=== PATIENT | male | born 1980 | race Two or more races ===

== ENCOUNTER 2022-08-02 07:20 | Emergency (ER) | payer MEDICAID ==
[~2022-08-02] VITALS: Ht 170.2 cm; Wt 91.4 kg
[2022-08-02] MEDS ORDERED: TETRACAINE HCL 0.5% OPTH(EYE) SOLN 4ML EACHEYE ONE (09:15)
[2022-08-02 09:16] VITALS: BP 121/82
[2022-08-02] MEDS ORDERED: CIP03OS RIGHTEYE (09:23)
[2022-08-02] MEDS ORDERED: FLUORESCEIN SOD OPTH TEST STRIP OP ONE (09:30)
== END 2022-08-02 09:34 | disposition home or self-care (01) ==
LOC: ER 07:20
DX: T15.01XA Foreign body in cornea, right eye, initial encounter (principal); W22.8XXA Striking against or struck by other objects, initial encounter; Y93.89 Activity, other specified; Y92.89 Other specified places as the place of occurrence of the external cause; Y99.8 Other external cause status

== ENCOUNTER → 2023-08-24 | Outpatient (CLI) | payer MEDICAID ==
[~2023-08-24] MED LIST: CIP03OS RIGHTEYE
[2023-08-24 06:36] LABS: Urine Bacteria NONE SEEN /hpf (None Seen); Urine Blood Negative /uL (Negative); Urine Clarity Clear (Clear); Urine Color Yellow (Yellow); Urine Mucus FEW (None Seen); Urine Protein, UAD TRACE (Negative); Urine Specific Gravity 1.032 (1.001-1.035); Urine Urobilinogen Normal (Negative); Urine WBC 1 /hpf (0 - 3); Urine pH 5.5 (5.0-8.0)
[2023-08-24 06:48] LABS: Basophils # (auto) 0.1 10 ^3/uL (0-0.2); Basophils % (auto) 0.7 % (0.0-2.0); Eosinophils # (auto) 0.1 10 ^3/uL (0-0.8); Eosinophils % (auto) 0.8 % (0.0-7.0); Hematocrit 45.6 % (41.0-53.0); Hemoglobin 15.6 g/dL (13.5-17.5); Lymphocytes # (auto) 2.8 10 ^3/uL (0.4-5.4); Lymphocytes % (auto) 31.5 % (10.0-50.0); Mean Corpuscular Hgb Conc. 34.2 g/dL (32.0-36.0); Mean Corpuscular Volume 96.3 fL (80.0-100.0); Monocytes # (auto) 0.8 10 ^3/uL (0-1.3); Neutrophils # (auto) 5.2 10 ^3/uL (1.6-8.6); Nucleated Red Blood Cells % 0.1 %; Red Blood Cells 4.73 10^6/uL (4.5-5.90); Red Cell Distribution Width 13.3 % (11.8-14.3)
[2023-08-24 07:39] LABS: Amphetamine Screen, Urine Neg (NEGATIVE); Barbiturate Scree,Urine Neg (NEGATIVE)
[2023-08-24 07:40] LABS: Benzodiazephine Screen, Urine Neg (NEGATIVE); Cocaine Screen, Urine Neg (NEGATIVE)
[2023-08-24 07:41] LABS: Cannabinoid Screen, Urine Neg (NEGATIVE); Opiate Scree,Urine Neg (NEGATIVE); Phencyclidine Screen, Urine Neg (NEGATIVE)
[2023-08-24 07:44] LABS: Alanine Aminotransferase 47 U/L (7-40); Albumin 4.4 g/dL (3.2-4.8); Alkaline Phosphatase 67 U/L (46-116); Anion Gap 6 (5-15); Aspartate Aminotransferase 22 U/L (13-40); BUN/Creatinine Ratio 10.4 (10.0-20.0); Blood Urea Nitrogen 10 mg/dL (9-23); Calcium 9.5 mg/dL (8.5-10.1); Carbon Dioxide 26 mmol/L (20-30); Chloride 109 mmol/L (98-107); Cholesterol 149 mg/dL (< 200); Glucose 102 mg/dL (74-106); HDL Cholesterol 48 mg/dL (40-59); LDL Cholesterol 94 mg/dL (< 100); Potassium 3.6 mmol/L (3.5-5.1); Sodium 141 mmol/L (136-145); Triglycerides 86 mg/dL (< 150)
[2023-08-24 07:45] LABS: Bilirubin, Total 1.3 mg/dL (0.2-1.0); Total Protein 6.6 g/dL (5.7-8.2)
[2023-08-24 07:54] LABS: Uric Acid 6.2 mg/dL (3.7-9.2)
[2023-08-24 09:54] LABS: Hepatitis B Core Total AB Negative (Negative)
[2023-08-24 12:34] LABS: Hepatitis A Total Antibody Positive (Negative); Hepatitis B Surface Antibody Negative (Negative); Hepatitis B Surface Antigen Negative (Negative); Hepatitis C Antibody Negative (Negative)
[2023-08-25 07:06] LABS: Rheumatoid Arthritis Factor <10.0 IU/mL (<14.0)
[2023-08-26 00:07] LABS: CCP IgG/IgA Antibody 5 units (0-19)
== END | disposition home or self-care (01) ==
LOC: LAB 06:04
PROVIDERS: ATTEND Internal Medicine
DX: J02.9 Acute pharyngitis, unspecified (principal)
CPT/HCPCS: 36415; 80053; 80061; 80307; 81001; 82274; 82306; 83036; 84443; 84550; 85025; 86200; 86431; 86704; 86706; 86708; 86803; 87340

== ENCOUNTER → 2024-10-18 | Outpatient (CLI) | payer MEDICAID ==
[2024-10-18 10:06] LABS: Urine Bacteria None Seen /hpf (None Seen)
[2024-10-18 10:33] LABS: Urine Blood Negative /uL (Negative); Urine Clarity Clear (Clear); Urine Color Light-Yellow (Yellow); Urine Protein, UAD Negative (Negative); Urine Specific Gravity 1.027 (1.001-1.035); Urine Squamous Epithelial Cell None Seen /hpf (<5); Urine Urobilinogen Normal (Negative); Urine WBC 1 /HPF (0-3)
[2024-10-18 10:35] LABS: Alanine Aminotransferase 38 U/L (7-40); Alkaline Phosphatase 70 U/L (46-116); Anion Gap 9 (5-15); BUN/Creatinine Ratio 12.4 (10.0-20.0); Basophils # (auto) 0 10 ^3/uL (0-0.2); Basophils % (auto) 0.4 % (0.0-2.0); Blood Urea Nitrogen 13 mg/dL (9-23); Calcium 9.9 mg/dL (8.7-10.4); Carbon Dioxide 26 mmol/L (20-31); Chloride 106 mmol/L (98-107); Eosinophils # (auto) 0.1 10 ^3/uL (0-0.8); Eosinophils % (auto) 1.2 % (0.0-7.0); Glucose 106 mg/dL (74-106); Hematocrit 45.6 % (41.0-53.0); Hemoglobin 15.5 g/dL (13.5-17.5); LDL Cholesterol 103 mg/dL (< 100); Lymphocytes # (auto) 2.2 10 ^3/uL (0.4-5.4); Lymphocytes % (auto) 30.8 % (10.0-50.0); Mean Corpuscular Hemoglobin 32.6 pg (28.0-32.0); Mean Corpuscular Hgb Conc. 34.1 g/dL (32.0-36.0); Mean Corpuscular Volume 95.8 fL (80.0-100.0); Monocytes # (auto) 0.6 10 ^3/uL (0-1.3); Monocytes % (auto) 9.2 % (0.0-12.0); Neutrophils # (auto) 4.1 10 ^3/uL (1.6-8.6); Neutrophils % (auto) 58.4 % (37.0-80.0); Nucleated Red Blood Cells % 0.1 %; Platelet Count (auto) 254 10^3/uL (140-450); Potassium 4.7 mmol/L (3.5-5.1); Red Blood Cells 4.76 10^6/uL (4.5-5.90); Red Cell Distribution Width 13.3 % (11.8-14.3); Sodium 141 mmol/L (136-145); Triglycerides 63 mg/dL (< 150)
[2024-10-18 10:36] LABS: Albumin 4.8 g/dL (3.2-4.8); Aspartate Aminotransferase 23 U/L (13-40); Cholesterol 159 mg/dL (< 200); HDL Cholesterol 46 mg/dL (40-59)
[2024-10-18 10:37] LABS: Bilirubin, Total 1.1 mg/dL (0.2-1.0)
== END | disposition home or self-care (01) ==
LOC: LAB 09:43
PROVIDERS: ATTEND Internal Medicine
DX: I10 Essential (primary) hypertension (principal); E55.9 Vitamin D deficiency, unspecified; R06.02 Shortness of breath; Z00.00 Encounter for general adult medical examination without abnormal findings
CPT/HCPCS: 36415; 80053; 80061; 81001; 82306; 83036; 83880; 84443; 85025

== ENCOUNTER 2025-03-16 07:33 | Outpatient (CLI) | payer MEDICAID ==
[~2025-03-16] VITALS: Ht 170.2 cm; Wt 89.8 kg
--- NOTE | 2025-03-16 15:52 | DVHSR ---
APPROVED REPORT Exam: Nuclear Stress Test BMI: 0 Stress Test Details HR Max Heart Rate (APMHR): 175.144609 bpm Target HR (85% APMHR): 148.851362 bpm BP ECG Stress ECG Conclusion lvef 55% fixed inferior wall defct noted no ischemia NM EXAM: Myocardial Perfusion REST/STRESS Imaging Protocol: Rest Tc-99m/Stress Tc-99m 1 day Resting Data Rest SPECT myocardial perfusion imaging was performed in supine position 60 minutes following the int ravenous injection of 11.0 mCi of Tc-99m Tetrofosmin. Time of rest injection: 08:29 Date: 03/16/2025 Time of rest imagin:29 Date: 03/16/2025 Administration Route: IV Administration Site: Right Hand Pharmacologic Stress Pharmacologic stress test was performed by injecting Regadenoson 0.4 mg IV push followed by the intra venous injection of 30.7 mCi of Tc-99m Sestamibi. Time of stress injection: 10:50 Date: 03/16/2025 Time of stress imagin:50 Date: 03/16/2025 Administration Route: IV Administration Site: Right Hand Gated Stress SPECT was performed 60 minutes after stress injection. The images were gated to evaluate regional wall motion and calculate left ventricular ejection fracti on. Stress only was performed in the Supine position. Nuclear Conclusion Nuclear Findings: negative for ischemia lvef 55% fixed inferior wall defct noted no ischemia
== END 2025-03-16 17:00 | disposition home or self-care (01) ==
LOC: XYW 07:33
PROVIDERS: ATTEND Internal Medicine
DX: I38 Endocarditis, valve unspecified (principal); R06.02 Shortness of breath; R07.9 Chest pain, unspecified; G93.32 Myalgic encephalomyelitis/chronic fatigue syndrome; G47.33 Obstructive sleep apnea (adult) (pediatric); U09.9 Post COVID-19 condition, unspecified
CPT/HCPCS: 78452; 93017; A9500

== ENCOUNTER 2025-03-16 11:39 | Outpatient (CLI) | payer MEDICAID ==
--- NOTE | 2025-03-16 12:05 | DVHCARD ---
Cardiology Stress Test [place] Treadmill Stress Test [place] Referring MD: MD Jhonny Protocol: Ryan (with cardiolite) Reason for referral: Chest Pain Target heart Rate:@85%: 148 Percent MPHR: 175 METS: 10.10 Resting Heart rate: 62 Resting Blood Pressure: 125/83 Exercise Heart Rate: 134 Exercise Blood Pressure: 150/74 Baseline EKG: Normal sinus rhythm Stress EKG: Sinus tachycardia Functional Capacity: Good Normal Heart Rate Response: Adequate Blood Pressure Response: Hypertensive Clinical response: Non-ischemic Arrhythmia?: No Cardiolite Injected?: Yes ST-T Changes: Non/Minimal Probability of Inducible Ische: Perfusion result pending Date of Service: Mar 16, 2025 Billing Provider: ASHLEY MEANS Cardiology Common Codes: PROCEDURE ONLY Treadmill W/Cardiolite Nuclear: [id number], INTERP, RPT ASHLEY MEANS Mar 16, 2025 12:05
[2025-03-16 12:24] LABS: Triglycerides 89 mg/dL (< 150)
[2025-03-16 12:26] LABS: Cholesterol 158 mg/dL (< 200); HDL Cholesterol 49 mg/dL (40-59)
== END 2025-03-16 17:00 | disposition home or self-care (01) ==
LOC: LAB 11:39
PROVIDERS: ATTEND Internal Medicine
DX: I10 Essential (primary) hypertension (principal); E55.9 Vitamin D deficiency, unspecified
CPT/HCPCS: 36415; 80061; 82306; 82607